=== PATIENT | female | born 1985 | race African-American/Black ===

== ENCOUNTER 2016-10-26 14:37 | Emergency (ER) | payer OTHER ==
[~2016-10-26] VITALS: Ht 149.9 cm; Wt 62.1 kg
[~2016-10-26 14:37] MED LIST: ACYCLOVIR400 MG PO; ALBUTEROL SULF8.5 GM IH; ANTIBIOTIC; AUGMENTIN875 MG PO; BLOOD PRESSURE PILL PO; CEFTIN500 MG PO; COLACE100 MG PO; Colace PO; ENDOCET 5-3251 EACH PO; FIORICET,ESG1 TABLET PO; FLORASTOR250 MG PO; Feosol PO; HYDROCODON-ACE1 EAC7 PO; HYDROCODON-ACE1 EAC8; IBUPROFEN800 MG PO; INDERAL10 MG PO; LANTUS 10100 UNITS/ SC; LANTUS 3 M100 UNITS/ SC; LEVAQUIN500 MG PO; LEVOFLOXACIN500 MG; LEVOFLOXACIN750 MG PO; MIRALAX255 GM PO; MOTRIN800 MG PO; MUCUS RELIEF600 MG PO; Motrin PO; NAPROSYN500 MG PO; NATALCARE RX1 TABLET PO; NEURONTIN400 MG PO; NEURONTIN600 MG PO; NOHOMEMEDS; NORCO 5/3251 TABLET PO; NOVOLIN N100 UNITS/ SC; NOVOLOG 10100 UNITS/ IV; NOVOLOG 10100 UNITS/ SC; NOVOLOG MI100 UNIT/M SC; NOVOLOG PE100 UNITS/ SC; NOVOLOG100 UNIT/3; NPH INSULIN SC; OXYMORPHONE HCL5 M1 PO; PEN-VEE K,VEET500 MG PO; PERCOCET 5/31 TABLET PO; PHENERGAN-CODE120 ML PO; PROMETHAZINE HC25 M1 PO; PYRIDIUM100 MG PO; Percocet 5/325,Endoc PO; Phenergan PO; TESSALON PERLE100 MG PO; TIZANIDINE HCL4 M1 PO; TORADOL10 MG PO; TRAMADOL HCL50 MG PO; TYLENOL WITH C1 EACH PO; ULTRAM50 MG PO; ValTRex PO; ZITHROMAX Z-PA250 MG PO; ZOFRAN ODT4 MG PO
[2016-10-26 15:25] LABS: CHLORIDE 100 mEq/L (99-109); POTASSIUM 4.4 mEq/L (3.7-5.4); SODIUM 132 mEq/L (136-147)
[2016-10-26 15:27] LABS: HEMATOCRIT 38.5 % (36.0-46.0); MCH 28.2 PG (29.0-34.0); MEAN PLAT.VOLUME 10.5 uM^3 (9.5-12.4); PLATELET COUNT 269 K/uL (156-360); RBC DIS.WIDTH-CV 12.5 % (11.8-14.6); RBC DIS.WIDTH-SD 37.4 % (39-53); RED BLOOD COUNT 4.64 M/uL (3.80-5.20); WHITE BLOOD COUNT 6.4 K/uL (4.1-10.2)
[2016-10-26 15:29] LABS: ANION GAP 8 MEQ/L (2-14); TOTAL BILIRUBIN 0.3 mg/dL (0.0-1.0)
[2016-10-26 15:31] LABS: ALKALINE PHOSPHATASE 84 IU/L (3-129); GFR ESTIMATE (CALCULATED) > 59 mL/min/
[2016-10-26 15:32] LABS: UREA NITROGEN (BUN) 8 mg/dL (9-23)
[2016-10-26 15:35] LABS: LIPASE 17 U/L (1.0-51.0)
[2016-10-26 15:46] LABS: QUANTITATIVE HCG < 4.0 MIU/ML
[2016-10-26 15:51] LABS: GLUCOSE 480 mg/dL (70-99)
[2016-10-26 15:55] LABS: ADD MIUA? YES; BILIRUBIN NEGATIVE; BLOOD SMALL; COLOR YELLOW ((YELLOW)); GLUCOSE (STRIP) >=1000; KETONES TRACE; LEUKOCYTES SMALL; NITRITE POSITIVE; PROTEIN (STRIP) TRACE; SPECIFIC GRAVITY 1.037 (1.000-1.030); UROBILINOGEN 0.2 MG/DL (0.2-1.0)
[2016-10-26 16:16] LABS: BACTERIA NONE SEEN /HPF; EPITHELIAL CELLS 2+ /HPF; MUCUS NONE SEEN /LPF; UCUL ADDED? YES; WHITE BLOOD CELLS TNTC /HPF (0-5)
[2016-10-26 18:47] LABS: POINT-OF-CARE METER ID UU13113800
[2016-10-26] MEDS ORDERED: ULTRAM50 MG PO (19:07)
[2016-10-26] MEDS ORDERED: ZOFRAN ODT4 MG PO (19:07)
[2016-10-26] MEDS ORDERED: KEFLEX500 MG PO (19:07)
[2016-10-26 19:22] VITALS: BP 116/76
== END 2016-10-26 19:25 | disposition home or self-care (01) ==
LOC: EME 14:37
PROVIDERS: Physician Assistant
DX: N39.0 Urinary tract infection, site not specified (principal); E11.65 Type 2 diabetes mellitus with hyperglycemia; R11.0 Nausea; R06.02 Shortness of breath; Z79.4 Long term (current) use of insulin
CPT/HCPCS: 80053; 81003; 82010; 82803; 82948; 83690; 84702; 85027; 87077; 87086; 87186; 99281; 99285; J0696; J1885; J2405; J3010; J7030

== ENCOUNTER 2016-12-13 19:48 | Emergency (ER) | payer OTHER ==
[~2016-12-13] VITALS: Ht 149.9 cm; Wt 59.6 kg
[~2016-12-13 19:48] MED LIST changes: +KEFLEX500 MG PO
[2016-12-13 20:36] LABS: HEMATOCRIT 39.7 % (36.0-46.0); MCH 27.7 PG (29.0-34.0); MCHC 33.5 G/DL (30.0-36.0); MCV 82.7 FL (83-99); MEAN PLAT.VOLUME 10.3 uM^3 (9.5-12.4); PLATELET COUNT 299 K/uL (156-360); RBC DIS.WIDTH-SD 36.8 % (39-53); WHITE BLOOD COUNT 7.3 K/uL (4.1-10.2)
[2016-12-13 20:54] LABS: CHLORIDE 96 mEq/L (99-109); POTASSIUM 4.3 mEq/L (3.7-5.4); SODIUM 129 mEq/L (136-147)
[2016-12-13 20:57] LABS: ANION GAP 8 MEQ/L (2-14)
[2016-12-13 20:58] LABS: TOTAL BILIRUBIN 0.3 mg/dL (0.0-1.0)
[2016-12-13 20:59] LABS: ALKALINE PHOSPHATASE 82 IU/L (3-129)
[2016-12-13 21:00] LABS: GFR ESTIMATE (CALCULATED) > 59 mL/min/
[2016-12-13 21:01] LABS: UREA NITROGEN (BUN) 7 mg/dL (9-23)
[2016-12-13 21:08] LABS: GLUCOSE 654 mg/dL (70-99); QUANTITATIVE HCG < 4.0 MIU/ML
[2016-12-13 21:38] LABS: CARBON DIOXIDE (BICARBONATE) 29.8 MEQ/L (20-31)
[2016-12-13 22:23] LABS: ADD MIUA? NO; BILIRUBIN NEGATIVE; BLOOD NEGATIVE; COLOR STRAW ((YELLOW)); GLUCOSE (STRIP) >=500; KETONES NEGATIVE; LEUKOCYTES NEGATIVE; NITRITE NEGATIVE; PROTEIN (STRIP) NEGATIVE; SPECIFIC GRAVITY 1.032 (1.000-1.030); UCUL ADDED? NO; UROBILINOGEN 0.2 MG/DL (0.2-1.0)
[2016-12-13 23:38] LABS: POINT-OF-CARE METER ID UU13113702
[2016-12-14] MEDS ORDERED: BENTYL10 MG PO (00:55)
[2016-12-14] MEDS ORDERED: TORADOL10 MG PO (00:55)
[2016-12-14] MEDS ORDERED: COLACE100 MG PO (00:55)
[2016-12-14 01:32] VITALS: BP 108/86
== END 2016-12-14 01:34 | disposition home or self-care (01) ==
LOC: EME 19:48
PROVIDERS: Physician Assistant
DX: N83.201 Unspecified ovarian cyst, right side (principal); K59.00 Constipation, unspecified; E11.65 Type 2 diabetes mellitus with hyperglycemia; I10 Essential (primary) hypertension; Z79.4 Long term (current) use of insulin
CPT/HCPCS: 74177; 76856; 80053; 81003; 82010; 82803; 82948; 84702; 85027; 99281; 99284; J2270; J2405; J3010; J7030

== ENCOUNTER 2017-01-31 18:49 | Emergency (ER) | payer OTHER ==
[~2017-01-31] VITALS: Ht 149.9 cm; Wt 62.6 kg
[~2017-01-31 18:49] MED LIST changes: +BENTYL10 MG PO
[2017-01-31 20:21] LABS: MCH 28.1 PG (29.0-34.0); MCHC 33.7 G/DL (30.0-36.0); MCV 83.3 FL (83-99); PLATELET COUNT 303 K/uL (156-360); RBC DIS.WIDTH-CV 11.9 % (11.8-14.6); RBC DIS.WIDTH-SD 36.2 % (39-53); RED BLOOD COUNT 4.56 M/uL (3.80-5.20); WHITE BLOOD COUNT 9.3 K/uL (4.1-10.2)
[2017-01-31 20:32] LABS: CHLORIDE 100 mEq/L (99-109); POTASSIUM 4.4 mEq/L (3.7-5.4); SODIUM 134 mEq/L (136-147)
[2017-01-31 20:35] LABS: ANION GAP 9 MEQ/L (2-14)
[2017-01-31 20:38] LABS: GFR ESTIMATE (CALCULATED) > 59 mL/min/
[2017-01-31 20:39] LABS: UREA NITROGEN (BUN) 10 mg/dL (9-23)
[2017-01-31 20:46] LABS: QUANTITATIVE HCG < 4.0 MIU/ML
[2017-01-31 20:47] LABS: GLUCOSE 431 mg/dL (70-99)
[2017-01-31] MEDS ORDERED: VICODIN 5-3001 EACH PO (21:14)
[2017-01-31 21:32] VITALS: BP 116/84
== END 2017-01-31 21:41 | disposition home or self-care (01) ==
LOC: EME 18:49
PROVIDERS: Physician Assistant
DX: G89.18 Other acute postprocedural pain (principal); R10.30 Lower abdominal pain, unspecified; E11.9 Type 2 diabetes mellitus without complications; I10 Essential (primary) hypertension; Z98.890 Other specified postprocedural states
CPT/HCPCS: 80048; 84702; 85027; 99281; 99284

== ENCOUNTER 2017-02-13 06:56 | Emergency (ER) | payer OTHER ==
[~2017-02-13] VITALS: Ht 149.9 cm; Wt 60.7 kg
[~2017-02-13 06:56] MED LIST changes: +VICODIN 5-3001 EACH PO
[2017-02-13] MEDS ORDERED: CLINDAMYCIN HC300 MG PO (09:04)
[2017-02-13] MEDS ORDERED: ULTRAM50 MG PO (09:04)
[2017-02-13] MEDS ORDERED: NAPROSYN500 MG PO (09:15)
[2017-02-13 09:36] VITALS: BP 130/98
== END 2017-02-13 09:36 | disposition home or self-care (01) ==
LOC: EME 06:56
DX: K04.7 Periapical abscess without sinus (principal); K03.81 Cracked tooth
CPT/HCPCS: 99281; 99283; J1885

== ENCOUNTER 2017-03-12 10:06 | Day surgery (SDC) | payer OTHER ==
[~2017-03-12] VITALS: Ht 149.9 cm; Wt 59.0 kg
[~2017-03-12 10:06] MED LIST changes: +CLINDAMYCIN HC300 MG PO; +LANTUS 3 M100 UNITS1 SC
[2017-03-12 10:31] LABS: POINT-OF-CARE METER ID UU13113694
[2017-03-12 10:41] VITALS: BP 129/93
[2017-03-12 10:50] LABS: HEMATOCRIT 37.5 % (36.0-46.0); MCH 28.9 PG (29.0-34.0); MCHC 33.9 G/DL (30.0-36.0); MCV 85.2 FL (83-99); RBC DIS.WIDTH-CV 12.1 % (11.8-14.6); RBC DIS.WIDTH-SD 37.9 % (39-53); WHITE BLOOD COUNT 11.1 K/uL (4.1-10.2)
[2017-03-12 11:16] LABS: ANION GAP 10 MEQ/L (2-14); CHLORIDE 107 MEQ/L (99-109); GFR ESTIMATE (CALCULATED) > 59 mL/min/; GLUCOSE 177 mg/dL (70-99); POTASSIUM 4.5 MEQ/L (3.7-5.4); SAMPLE HEMOLYSIS CHECK 0; SAMPLE ICTERIC CHECK 0; SAMPLE LIPEMIA CHECK 0; SODIUM 138 MEQ/L (136-147); UREA NITROGEN (BUN) 15 mg/dL (9-23)
[2017-03-12 11:19] LABS: MEAN PLAT.VOLUME 10.3 uM^3 (9.5-12.4); PLATELET COUNT 320 K/uL (156-360)
[2017-03-12 11:20] LABS: QUANTITATIVE HCG < 4.0 MIU/ML
[2017-03-12 11:43] LABS: POINT-OF-CARE METER ID UU13113694
[2017-03-12] MEDS ORDERED: MOTRIN800 MG PO (12:49)
[2017-03-12 13:08] LABS: POINT-OF-CARE METER ID UU13113675
[2017-03-12] MEDS ORDERED: PERCOCET 5/31 TABLET PO (14:49)
[2017-03-12 15:43] VITALS: BP 132/81
[2017-03-12 16:35] VITALS: BP 105/61
[2017-03-12 17:25] VITALS: BP 115/74
[2017-03-12 17:32] LABS: POINT-OF-CARE METER ID UU13113694; POINT-OF-CARE USER ID AHSRSCSLC11
== END 2017-03-12 17:58 | disposition home or self-care (01) ==
LOC: SDC 10:06
PROVIDERS: Obstetrics & Gynecology
PROC: 0U5B8ZZ Destruction of Endometrium, Via Natural or Artificial Opening Endoscopic (ICD-10-PCS; principal; 2017-03-12)
DX: N93.9 Abnormal uterine and vaginal bleeding, unspecified (principal); E10.42 Type 1 diabetes mellitus with diabetic polyneuropathy; Z79.4 Long term (current) use of insulin; Z83.3 Family history of diabetes mellitus; Z82.49 Family history of ischemic heart disease and other diseases of the circulatory system
CPT/HCPCS: 80048; 82948; 84702; 85027; 86900; 86901; 88305; J1170; J1815; J1885; J2250; J2405; J3010; J7120

== ENCOUNTER 2018-01-26 06:48 | Emergency (ER) | payer OTHER ==
[~2018-01-26] VITALS: Ht 149.9 cm; Wt 58.5 kg
[2018-01-26 08:20] LABS: ALBUMIN 3.7 g/dL (3.2-4.8); CHLORIDE 99 mEq/L (99-109); POTASSIUM 4.5 mEq/L (3.7-5.4); SODIUM 133 mEq/L (136-147)
[2018-01-26 08:22] LABS: TOTAL PROTEIN 6.4 g/dL (6.4-8.3)
[2018-01-26 08:24] LABS: TOTAL BILIRUBIN 0.3 mg/dL (0.0-1.0)
[2018-01-26 08:25] LABS: HEMATOCRIT 40.4 % (36.0-46.0); HEMOGLOBIN 14.1 G/DL (11.9-15.5); MCHC 34.9 G/DL (30.0-36.0); RBC DIS.WIDTH-CV 11.8 % (11.8-14.6); RBC DIS.WIDTH-SD 35.6 % (39-53); RED BLOOD COUNT 4.87 M/uL (3.80-5.20); WHITE BLOOD COUNT 9.1 K/uL (4.1-10.2)
[2018-01-26 08:26] LABS: ALKALINE PHOSPHATASE 71 IU/L (3-129); CREATININE 0.9 mg/dL (0.6-1.3); GFR ESTIMATE (CALCULATED) > 59 mL/min/
[2018-01-26 08:27] LABS: UREA NITROGEN (BUN) 5 mg/dL (9-23)
[2018-01-26 08:29] LABS: ALT (GPT) 9 IU/L (3-49); AST (GOT) 9 IU/L (2-34)
[2018-01-26 08:47] LABS: GLUCOSE 434 mg/dL (70-99)
[2018-01-26 09:09] LABS: TROP-I INTERPRETATION NEGATIVE; TROPONIN-I < 0.01 ng/mL (0.0-0.30)
[2018-01-26 09:13] LABS: PLAT.SUFFICIENCY ADEQUATE; PLATELET COUNT 302 K/uL (156-360)
[2018-01-26 09:20] LABS: APPEARANCE SL.HAZY ((CLEAR)); BILIRUBIN NEGATIVE; BLOOD NEGATIVE; COLOR YELLOW ((YELLOW)); GLUCOSE (STRIP) >=500; KETONES NEGATIVE; LEUKOCYTES LARGE; NITRITE NEGATIVE; PROTEIN (STRIP) NEGATIVE; SPECIFIC GRAVITY 1.038 (1.000-1.030); UROBILINOGEN 0.2 MG/DL (0.2-1.0)
[2018-01-26 09:30] LABS: AMPHETAMINE NEGATIVE (500 ng/mL); BACTERIA RARE /HPF; BARBITURATES NEGATIVE (200 ng/mL); BENZODIAZEPINES NEGATIVE (150 ng/mL); BUPRENORPHINE NEGATIVE (10 ng/mL); CALCIUM OXALATE CRYSTALS 1+ /HPF; COCAINE NEGATIVE (150 ng/mL); EPITHELIAL CELLS 1+ /HPF; METHADONE NEGATIVE (200 ng/mL); METHAMPHETAMINE NEGATIVE (500 ng/mL); MUCUS NONE SEEN /LPF; OPIATES (MORPHINE) NEGATIVE (100 ng/mL); OXYCODONE PRESUMPTIVE POSITIVE (100 ng/mL); PHENCYCLIDINE NEGATIVE (25 ng/mL); PROPOXYPHENE NEGATIVE (300 ng/mL); RED BLOOD CELLS 20-30 /HPF (0-5); THC CANNABINOIDS NEGATIVE (50 ng/mL); TRICYCLIC ANTIDEPRESSANTS NEGATIVE (300 ng/mL); UCUL ADDED? YES; WHITE BLOOD CELLS 30-40 /HPF (0-5)
[2018-01-26] MEDS ORDERED: BACLOFEN10 MG PO (10:40)
[2018-01-26] MEDS ORDERED: KEFLEX500 MG PO (10:40)
[2018-01-26 11:05] VITALS: BP 128/99
== END 2018-01-26 11:30 | disposition home or self-care (01) ==
LOC: EME 06:48
PROVIDERS: Nurse Practitioner Family
DX: N39.0 Urinary tract infection, site not specified (principal); E10.65 Type 1 diabetes mellitus with hyperglycemia; R07.89 Other chest pain; G89.29 Other chronic pain; Z79.4 Long term (current) use of insulin; I10 Essential (primary) hypertension; F32.9 Major depressive disorder, single episode, unspecified; F41.9 Anxiety disorder, unspecified
CPT/HCPCS: 71046; 80053; 81003; 81025; 82948; 84484; 85027; 87086; 93005; 99281; 99284; J0696; J1885; J7030

== ENCOUNTER 2018-02-01 05:53 | Emergency (ER) | payer OTHER ==
[~2018-02-01] VITALS: Ht 149.9 cm; Wt 58.8 kg
[~2018-02-01 05:53] MED LIST changes: +BACLOFEN10 MG PO
[2018-02-01] MEDS ORDERED: LIDODERM 5% P1 PATCH TD (07:24)
[2018-02-01] MEDS ORDERED: MOTRIN800 MG PO (07:24)
[2018-02-01] MEDS ORDERED: SKELAXIN800 MG PO (07:24)
[2018-02-01] MEDS ORDERED: VOLTAREN 1% GE100 GM TP (07:24)
[2018-02-01 07:38] VITALS: BP 118/79
== END 2018-02-01 07:46 | disposition home or self-care (01) ==
LOC: EME → EDBD 05:53 → EME 05:53
DX: M54.32 Sciatica, left side (principal); E11.9 Type 2 diabetes mellitus without complications; Z79.4 Long term (current) use of insulin; I10 Essential (primary) hypertension; G89.29 Other chronic pain; F32.9 Major depressive disorder, single episode, unspecified; F41.9 Anxiety disorder, unspecified
CPT/HCPCS: 99281; 99284; J1885

== ENCOUNTER 2018-02-07 16:42 | Emergency (ER) | payer OTHER ==
[~2018-02-07] VITALS: Ht 149.9 cm; Wt 56.6 kg
[~2018-02-07 16:42] MED LIST changes: +LIDODERM 5% P1 PATCH TD; +SKELAXIN800 MG PO; +VOLTAREN 1% GE100 GM TP
[2018-02-07 18:52] LABS: APPEARANCE CLEAR ((CLEAR)); BILIRUBIN NEGATIVE; BLOOD NEGATIVE; COLOR STRAW ((YELLOW)); GLUCOSE (STRIP) >=500; KETONES 5; LEUKOCYTES TRACE; NITRITE NEGATIVE; PROTEIN (STRIP) NEGATIVE; SPECIFIC GRAVITY 1.037 (1.000-1.030); UROBILINOGEN 0.2 MG/DL (0.2-1.0)
[2018-02-07 19:04] LABS: BACTERIA NONE SEEN /HPF; EPITHELIAL CELLS 1+ /HPF; MUCUS NONE SEEN /LPF; RED BLOOD CELLS 0-5 /HPF (0-5); WHITE BLOOD CELLS 0-5 /HPF (0-5)
[2018-02-07 19:59] VITALS: BP 138/89
== END 2018-02-07 20:07 | disposition home or self-care (01) ==
LOC: EME 16:42
PROVIDERS: Physician Assistant
DX: M54.16 Radiculopathy, lumbar region (principal); G89.29 Other chronic pain; E11.9 Type 2 diabetes mellitus without complications; Z79.4 Long term (current) use of insulin; I10 Essential (primary) hypertension; F41.9 Anxiety disorder, unspecified; F32.9 Major depressive disorder, single episode, unspecified
CPT/HCPCS: 72100; 81003; 99281; 99285; J1100